=== PATIENT | female | born 1945 | race Caucasian/White ===

== ENCOUNTER → 2018-09-01 | Outpatient (CLI) | payer BC ==
[~2018-09-01] MED LIST: AMARYL4 MG PO; AMBIEN 5 MG TABL5 M1 PO; ASPIRIN81 M2 PO; CO Q-10100 MG PO; COZAAR 25 MG TA25 M1 PO; CRESTOR10 MG PO; CYMBALTA60 MG PO; FLEXERIL PO; HYDROCODONE-AP1 EAC6 PO; METFORMIN HCL500 MG PO; METHIMAZOLE5 MG PO; NORCO 5-325 TA1 EACH PO; PREVACID 24HR15 MG PO; VICODIN 5-3001 EACH PO; VICTOZA0.6 MG/0.1 SUBQ; VITAMIN D32000 UNI1 PO; VITAMIN D3400 UNIT PO; ZANAFLEX4 MG
== END ==
LOC: M.RAD 16:47
DX: M54.6 Pain in thoracic spine (principal); M54.2 Cervicalgia; G89.29 Other chronic pain; I70.0 Atherosclerosis of aorta

== ENCOUNTER → 2018-11-21 | Outpatient (CLI) | payer BC | LOC: M.ULTRA 11:25 | DX: I65.23 Occlusion and stenosis of bilateral carotid arteries (principal); I25.10 Atherosclerotic heart disease of native coronary artery without angina pectoris ==

== ENCOUNTER 2019-03-31 03:14 | Emergency (ER) | payer BC ==
[~2019-03-31] VITALS: Ht 152.4 cm; Wt 57.1 kg
[2019-03-31] MEDS ORDERED: HYDROCODON-ACE1 EAC8 PO (03:57)
[2019-03-31 04:09] VITALS: BP 162/89
== END 2019-03-31 04:09 | disposition home or self-care (01) ==
LOC: M.ERS 03:14
DX: S52.571A Other intraarticular fracture of lower end of right radius, initial encounter for closed fracture (principal); S52.611A Displaced fracture of right ulna styloid process, initial encounter for closed fracture; E11.9 Type 2 diabetes mellitus without complications; Z90.710 Acquired absence of both cervix and uterus; Z85.3 Personal history of malignant neoplasm of breast; Z90.89 Acquired absence of other organs; Z88.5 Allergy status to narcotic agent; W18.39XA Other fall on same level, initial encounter; Y92.89 Other specified places as the place of occurrence of the external cause; Y93.89 Activity, other specified; Y99.8 Other external cause status